=== PATIENT | female | born 1995 | race African-American/Black ===

== ENCOUNTER 2024-03-08 21:32 | Emergency (ER) | payer OTHER, SELFPAY ==
[2024-03-08 21:40] VITALS: BP 116/94; PULSE 110; RESP 16; TEMP 36.2; O2SAT 98; BMI 27.1
--- NOTE | 2024-03-08 21:50 | ED_ITS ---
HPI - General Adult General Chief complaint: Nausea/Vomiting Stated complaint: Food poinsening Time Seen by Provider: 03/08/24 21:39 Source: patient Mode of arrival: ambulatory Limitations: no limitations History of Present Illness HPI narrative: 29-year-old female, generally healthy, presents with vomiting for the last 5-6 hours. She vomited multiple times. She does have Zofran at home that she uses when she has lactose as she is lactose intolerant, however she states that the managed states that she throws it up. No fevers or chills. No diarrhea. She denies . No chest or abdominal discomfort. Related Data Home Medications ?Medication ?Instructions ?Recorded ?Confirmed No Known Home Medications 03/08/24 03/08/24 Allergies Allergy/AdvReac Type Severity Reaction Status Date / Time No Known Drug Allergies Allergy Verified 03/08/24 21:39 Review of Systems Status of ROS: Reports: 10 or more systems reviewed and unremarkable except as noted in History and below Exam Narrative: Exam Narrative: Well-nourished well-developed patient in no acute distress. Alert and oriented. Answers questions appropriately. Mood and affect are appropriate. Thoughts are goal oriented and rational. No tangential or magical thinking noted. Patient speaks in full sentences without needing to catch her breath. She does not appear ill or toxic. HEENT: Normocephalic atraumatic. Pupils are equally round reactive to light. Extraocular muscles are intact. Conjunctivae are moist without any icterus noted. Moist mucous membranes. Posterior pharynx is normal. Neck is soft without any lymphadenopathy or thyromegaly. No masses are appreciated. Cardiovascular: Heart is regular rate and rhythm S1 and S2 are present without any murmurs. Recheck her pulse and it was 92. Lungs: Clear to auscultation bilaterally no wheezes rhonchi or rales are appreciated. Patient takes deep breaths without any discomfort. Abdomen: Soft and nontender nondistended with normal bowel sounds. Extremities: Bilateral lower extremities are without edema. Skin: Well perfused. Const: Vital Signs, click to edit/add: Vital Signs - 24 hr 03/08/24 21:40 03/08/24 22:29 Temperature 97.1 F L Pulse Rate [Pulse Oximeter] 110 H 81 Respiratory Rate 16 Blood Pressure [Ri ght Upper Arm] 116/94 H Pulse Oximetry 98 98 Oxygen Delivery Me thod Room Air Room Air Course Course ED Course: IV is established and patient received a L of normal saline and IV Zofran. Vital Signs Vital signs: Initial Vital Signs Temperature 97.1 F L 03/08/24 21:40 Temperature Source Temporal Artery Scan 03/08/24 21:40 Pulse Rate 110 H 03/08/24 21:40 Respiratory Rate 16 03/08/24 21:40 Blood Pressure 116/94 H 03/08/24 21:40 Blood Pressure Mean 101 03/08/24 21:40 Blood Pressure Position Sitting 03/08/24 21:40 Pulse Oximetry 98 03/08/24 21:40 Oxygen Delivery Method Room Air 03/08/24 21:40 Vital Signs Temperature 97.1 F L 03/08/24 21:40 Pulse Rate 110 H 03/08/24 21:40 Respiratory Rate 16 03/08/24 21:40 Blood Pressure 116/94 H 03/08/24 21:40 Pulse Oximetry 98 03/08/24 21:40 Oxygen Delivery Method Room Air 03/08/24 21:40 Temperature 97.1 F L 03/08/24 21:40 Pulse Rate 81 03/08/24 22:29 Respiratory Rate 16 03/08/24 21:40 Blood Pressure 116/94 H 03/08/24 21:40 Pulse Oximetry 98 03/08/24 22:29 Oxygen Delivery Method Room Air 03/08/24 22:29 Medications Administered Medications: Discontinued Medications Generic Name Dose Route Start Last Admin Trade Name Freq PRN Reason Stop Dose Admin Sodium Chloride 1,000 mls @ 1,000 mls/hr 03/08/24 21:45 03/08/24 22:05 0.9 % Sodium Chloride 1000 Ml IV 03/08/24 22:44 1,000 mls/hr .Q1H DEBORAH Administration Ondansetron HCl 4 mg 03/08/24 21:45 03/08/24 22:14 Ondansetron 2 Mg/Ml Inj IVP 03/08/24 21:46 4 mg ONCE ONE Administration Medical Decision Making [facility] Narrative Medical decision making narrative: 29-year-old female with vomiting. Likely gastroenteritis secondary to viral infection. Discussed symptomatic treatment and reasons for follow-up. Discharge Plan Discharge Clinical Impression: Gastroenteritis Patient Disposition: Home, Self-Care Condition: Stable Instructions: Acute Nausea and Vomiting (ED) Prescriptions: No Action No Known Home Medications Stand Alone Forms: Perkle Info Instructions
[2024-03-08] MEDS: 0.9 % SODIUM CHLORIDE 1000 ml 1,000 ML IV (22:05)
[2024-03-08] MEDS: ONDANSETRON 2 MG/ML inj 4 MG IVP (22:14)
--- OUTSIDE RECORDS SUMMARY | 2024-03-08 22:20 | XMS_ITS | Referral Summary ---
Author Organization [employer] Address [address] [place] [id number] Care Team Providers Care Para Educator Name Role Phone No Ref-Primary, Physician Primary Care Provider Allergies No known active allergies Medications methylPREDNISol one (MEDROL DOSEPAK) 4 MG tablet therapy pack Follow Package Directions 21 tablet 4 Active Active Problems No known active problems Social History Tobacco Use Types Packs/Day Years Used Date Smoking Tobacco: Never Smokeless Tobacco: Never Tobacco Cessation:Counseling Given: No Adolescent Education Answer Date Record ed Getting School Help Needed Not on file 11/10 Comments Unknown Sex and Gender Information Value Date Recorded Sex Assigned at Not on file Legal Sex Female 3:59 PM CDT Gender Identity Not on file Sexual Orientation Not on file Last Filed Vital Signs Vital Sign Reading Time Taken Comments Blood Pressure 128/80 10/16/2023 12:42 AM CDT Pulse 80 10/16/2023 12:42 AM CDT Temperature 36.6 C (97.8 F) 10/15/2023 9:08 PM CDT Respiratory Rate 16 10/15/2023 9:08 PM CDT Oxygen Saturation 100% 10/16/2023 12: 42 AM CDT Inhaled Oxygen Concentration - - Weight 77.4 kg (170 lb 10.2 oz) 10/15/2023 9:08 PM CDT Height 167.6 cm (5' 6) 10/15/2023 9:08 PM CDT Body Mass Index 27.54 10/15/2023 9:08 PM CDT Plan of Treatment Not on file Insurance [facility] Care Teams Para Educator Relationship Specialty Start Date End Date No Ref-Primary, Physician PCP - General 04/08/19
--- OUTSIDE RECORDS SUMMARY | 2024-03-08 22:20 | XMS_ITS | Clinical Summary ---
Author Organization [facility] Address [address], [place] [address] Care Team Providers Care Machine Feeder Floorperson Name Role Phone Unavailable Primary Care Provider Unavailabl e Source Comments You are receiving this document as you are listed as the primary care provider,follow-up provider, or the patient has been referred to you for consultation.This is in compliance with the Medicare and[facility] E[facility] Incentive [facility],which states Providers who transition their patient to another setting of careor provider of care or refers their patient to another provider of care shouldprovide summary care record for each transition of care or referral. [employer] Allergies No known active allergies Medications No known medications Active Problems No known active problems Immunizations Name Administration Dates Next Due Moderna Monovalent 12+ 03/30/2020,03/02/2020 Social History Tobacco Use Types Packs/Day Years Used Date Smoking Tobacco: Never Smokeless Tobacco: Never Sex and Gender Information Value Date Recorded Sex Assigned at Not on file Gender Identity Not on file Sexual Orientation Not on file Last Filed Vital Signs Vital Sign Reading Time Taken Comments Blood Pressure 115/65 04/11/2017 6:39 PM [facility] Pulse 82 04/11/2017 6:39 PM [facility] Temperature 36.9 C (98.5 F) 04/11/2017 6:39 PM [facility] Respiratory Rate 16 04/11/2017 6:39 PM [facility] Oxygen Saturation 100% 04/11/2017 6:39 PM [facility] Inhaled Oxygen Concentration - - Weight - - Height - - Body Mass Index - - Plan of Treatment Health Maintenance Due Date Last Done Comments Cervical Cancer Screening Due 1994 Hep C Screening (Preventive Services) 1994 HIV Screening (Preventive Services) 2010 Adult Preventive Visit 02/20/2012 DTaP/Tdap/Td (1 - Tdap) 2013 HepB (1) 2013 COVID-19 Vaccine (3 - 2023-2 5 season) 2023 03/30/2020, 03/02/2020 Influenza (#1) 2023 Zoster/Shingles (1 of 2) 02/20/2044 HPV Vaccine Aged Out No longer eligi ble based on patient's age to complete this topic HepA Aged Out No longer eligi ble based on patient's age to complete this topic Hib Aged Out No longer eligi ble based on patient's age to complete this topic IPV (Polio) Aged Out No longer eligi ble based on patient's age to complete this topic MCV4 Aged Out No longer eligi ble based on patient's age to complete this topic Pneumococcal Aged Out No longer eligi ble based on patient's age to complete this topic
--- OUTSIDE RECORDS SUMMARY | 2024-03-08 22:20 | XMS_ITS | Clinical Summary ---
Author Organization [facility] Address [address] [place] [id number] Care Team Providers Care Sample Driller Name Role Phone No Ref-Primary, Physician Primary [...] 10/15/2023 9:08 PM CDT Plan of Treatment Health Maintenance Due Date Last Done Comments ADVANCE CARE PLANNING 1994 ANNUAL REVIEW OF HM ORDERS 1994 YEARLY PREVENTIVE VISIT 1997 HIV SCREENING 2009 HEPATITIS C SCREENING 02/20/2012 HEPATITIS B IMMUNIZATION (1 of 3 - 19+ 3-dose series) 2013 PAP 2015 DTAP/TDAP/TD IMMUNIZATION (1 - Tdap) 2019 COVID-19 Vaccine (3 - 4-2 5 season) 2023 03/30/2020, 03/02/2020 INFLUENZA VACCINE (#1) 2023 PHQ-2 (once per calendar year) 2024 RSV VACCINE (1 - 1-dose 75+ series) 2069 HPV IMMUNIZATION Aged Out No longer e ligible based on patient's age to complete this topic MENINGITIS IMMUNIZATION Aged Out No l onger eligible based on patient's age to complete this topic Pneumococcal Vaccine: Pediatrics (0 to 5 Years) and At-Risk Patients (6 to 49 Years) Aged Out No longer eligible b ased on patient's age to complete this topic RSV MONOCLONAL ANTIBODY Aged Out No l onger eligible based on patient's age to complete this topic Insurance [facility] Member Subscriber Plan / Payer (Ef fective 2021-Present) Name:Eugenia Oneil Nile Relation to Subscriber:Self Name:Eugenia Oneil Nile Payer ID:[id number] ([facility]) Group ID:Not on file Type:HMO Address: [address] Care Teams Sample Driller Relationship Specialty Start Date End Date No Ref-Primary, Physician PCP - General 04/08/19
--- OUTSIDE RECORDS SUMMARY | 2024-03-08 22:20 | XMS_ITS | Continuity of Care Document ---
Author Name [facility] Address Unknown Organization Unknown Address Unknown Encounters FILTER APPLIED:Only known Encounters with Admission Date within the last 5 years Encounter Location Admission Discharge Billing Code [employer] Operator Maximo boyd Emergency [facility]
[2024-03-08 22:29] VITALS: PULSE 81; O2SAT 98
== END 2024-03-08 23:03 | disposition home or self-care (01) ==
LOC: ED 22:18
PROVIDERS: Emergency Provider Family Medicine
DX: K52.9 Noninfective gastroenteritis and colitis, unspecified (principal)
CPT/HCPCS: 96374; 99283; 99284; J2405; J7030